=== PATIENT | male | born 1975 | race Caucasian/White ===

== ENCOUNTER 2017-12-08 12:21 | Day surgery (SDC) | payer BC, OTHER ==
[2017-12-03 15:56] VITALS: BMI 32.0
[~2017-12-08] VITALS: Ht 182.9 cm; Wt 106.8 kg
[~2017-12-08 12:21] MED LIST: ATROPINE SULFATE 0.1 MG/ML 5ML SYR IV PRN; CEFAZOLIN 2000MG IV PUSH 10 ML IV SCH; CLX20 PO; EpHEDrine SULFATE INJ 50 MG/ML AMP IV PRN; LACTATED RINGER'S 1000ML 1,000 ML IV SCH; ONDANSETRON INJ 2 MG/ML 2 ML VIAL IV PRN; PROMETHAZINE HCL INJ 12.5 MG in SODIUM CHLORIDE 0.9% 50ML 50 ML IV PRN
[2017-12-08 12:43] VITALS: BP 173/83; PULSE 66; TEMP 36.6; O2SAT 96; Ht 182.9 cm; Wt 106.8 kg
[2017-12-08] MEDS ORDERED: ONDANSETRON INJ 2 MG/ML 2 ML VIAL ONE (14:17)
[2017-12-08] MEDS ORDERED: LIDOCAINE HCL 2% 2 ML VIAL (20MG/ML) ONE (14:17)
[2017-12-08] MEDS ORDERED: DEXAMETHASONE SOD INJ 4 MG/ML VIAL ONE (14:17)
[2017-12-08] MEDS ORDERED: PROPOFOL IV EMULSION 10 MG/ML 20 ML VIAL IV ONE (14:17)
[2017-12-08] MEDS ORDERED: MIDAZOLAM HCL 1 MG/ML 2ML VIAL ONE (14:18)
[2017-12-08] MEDS ORDERED: FENTANYL CITRATE INJ 50 MCG/1 ML 2 ML VIAL ONE ×2 (14:18→15:36)
--- NOTE | 2017-12-08 14:34 | History & Physical Bridge Note ---
H&P Re-Evaluation Bridge Note: I have examined the patient, reviewed the History & Physical and in the interval since the performance of the History & Physical I have noted the following changes of clinical significance: No changes noted
[2017-12-08] MEDS ORDERED: BUPIVACAINE 0.5 % 5 MG/1 ML MPF 30ML VIAL ONE (14:51)
[2017-12-08] MEDS ORDERED: GLYCOPYRROLATE INJ 0.2 MG/ML VIAL ONE (15:21)
[2017-12-08] MEDS ORDERED: ROCURONIUM BROMIDE 10 MG/ML 5 ML VIAL IV ONE (15:21)
[2017-12-08] MEDS ORDERED: NEOSTIGMINE METHYLSULFATE 5 MG/5 ML SYR ONE (15:21)
[2017-12-08] MEDS ORDERED: EpHEDrine SULFATE 50MG/5ML SYR ONE (15:27)
[2017-12-08] MEDS ORDERED: SODIUM CHLORIDE 0.9% 1000ML 1,000 ML IV SCH (16:19)
--- NOTE | 2017-12-08 16:19 | [facility] Post Operative Brief Note ---
Immediate Operative Summary Operative Date Dec 08, 2017. Pre-Operative Diagnosis Right inguinal hernia Post-Operative Diagnosis Right indirect inguinal hernia Procedure(s) Performed Open Repair Right Inguinal Hernia with mesh Surgeon Dr Haskins Roll Trucker Surgeon(s) Berenice Cochran PA-C Estimated Blood Loss 5ml Findings See Below See dictation Specimens none per surgeon Drains None Anesthesia Type General Complication(s) none Disposition Disposition: Recovery Room / PACU
--- NOTE | 2017-12-08 16:21 | Discharge Instructions ---
Discharge Instructions Date of Service Dec 08, 2017. Admission Reason for Admission: Right Inguinal Hernia Discharge Discharge Diagnosis / Problem: Same Discharge Goals Goal(s): Decrease discomfort Activity Recommendations Activity Limitations: per Instructions/Follow-up section Lifting Limitations: no more than 10 pounds (for 6 weeks) Shower/Bathe: tomorrow (shower only) . Instructions / Follow-Up Instructions / Follow-Up ACTIVITY RECOMMENDATIONS: * Walk as much as possible. * No heavy lifting (>10 lbs.) for 2 weeks. SPECIAL CARE INSTRUCTIONS: * Ice to hernia repair site on and off until bedtime tonight. * May shower in 24 hours. Let water run over area and pat dry. * Leave steri strips on for one week. * Call the surgeon's office with any questions or concerns - (ex. temperature higher than 101 degrees F, excessive bleeding or pain). MEDICATIONS: Resume previous medications unless instructed otherwise by your surgeon. * Ibuprofen 600 mg every 6 hours with food * Percocet 1 every 4 hours, as needed for pain FOLLOW UP VISIT: If not already scheduled, please call the office to schedule a two week follow- up appointment. Office number Current Hospital Diet Patient's current hospital diet: Discharge Diet Recommended Diet: Regular Diet Procedures Procedures Performed: Open Repair Right Inguinal Hernia with mesh Pending Studies Studies pending at discharge: no Medical Emergencies . Who to Call and When: Medical Emergencies: If at any time you feel your situation is an emergency, please call 911 immediately. . Non-Emergent Contact Non-Emergency issues call your: Primary Care Provider, Surgeon Call Non-Emergent contact if: your pain is worsening, wound has increased redness, wound has increased pain . "Provider Documentation" section prepared by Wil Haskins. . VTE Core Measure Inpt VTE Proph given/why not?: Treatment not indicated
[2017-12-08] MEDS ORDERED: ONDANSETRON INJ 2 MG/ML 2 ML VIAL IV PRN (16:30)
[2017-12-08] MEDS ORDERED: MoRPHine SULFATE 4 MG/ML 1 ML CARP\\VIAL IV PRN (16:30)
[2017-12-08] MEDS ORDERED: OXYCODONE/ACETAMINOPHEN 5-325 TAB PO PRN (16:30)
[2017-12-08] MEDS: FENTANYL CITRATE INJ 50 MCG/1 ML 2 ML VIAL IV PRN ×4 (17:05→17:40)
[2017-12-08] MEDS: HYDROmorphone INJ 1 MG/ML SYR IV PRN ×6 (17:16→17:53)
[2017-12-08] MEDS ORDERED: KETOROLAC TROMETHAMINE 30 MG/ML VIAL ONE (17:39)
[2017-12-08] MEDS ORDERED: KETOROLAC TROMETHAMINE 30 MG/ML VIAL IV STA (17:40)
--- NOTE | 2017-12-08 17:48 | OPERATIVE REPORT ---
DATE OF OPERATION: 12/08/2017 PREOPERATIVE DIAGNOSIS: Right inguinal hernia. POSTOPERATIVE DIAGNOSIS: Right indirect inguinal hernia. PROCEDURE: Repair of right indirect inguinal hernia. SURGEON: Dr. Haskins. VP PLATFORMS: Berenice Cochran PA-C FINDINGS: The patient had a large indirect inguinal hernia. There was no true direct component but the floor of the canal was attenuated due to the large size of the internal ring. The cord structures were normal. There were no other hernia defects identified. TECHNIQUE: The patient was given a general anesthetic and the area was prepped and draped in the usual sterile fashion. The right inguinal incision was made, carried down through the subcutaneous tissue to the fascia. The external oblique and external ring were identified. A small incision was made in the external oblique and the underlying structures were off its undersurface and it was opened through the external ring. It was dissected through the subcutaneous tissue, there were 2 bridging veins that were doubly clamped, divided and ligated using 3-0 Vicryl ties. The hernia was easily identified. It was within the cremasterics. The cremasteric fibers were opened and the hernia sac was then peeled superiorly. This allowed me then to identify the more distal cord structures and isolate them at the floor of the canal. A Mac drain was placed around them. I then was able to establish a plane beginning more distally at the hernia sac and then working from distal to proximal up to the internal ring, dissecting the hernia sac away from all of the cord structures up to just inside the internal ring. I then away from the scruggs of the canal and the musculature over the internal ring such that it was completely freed and I was able to place it back into its anatomic position. Using the remnant of the cremasterics as well as the transversalis, the floor of the canal was oversewn using a running 0 PDS. Then a new internal ring had been at the tip of my finger. A piece of preformed inguinal hernia mesh was then placed into the floor of the canal and sewn to the anterior surface of the internal oblique medially shelving border over the inguinal ligament laterally and to the tissue over the pubic bone. The legs of the mesh were approximated to each other to create a new internal ring. The cord structures and ilioinguinal nerve which had been included with the cord structures that had been isolated at the beginning of the case were placed back into their anatomic position and the external oblique was closed over them using a running 2-0 Vicryl. The deep subcutaneous tissue was closed with running 2-0 Vicryl, the superficial subcutaneous tissue was closed with running 3-0 Vicryl and the skin of all the incisions was closed with 4-0 Monocryl in either an interrupted or running subcuticular fashion. The skin was anesthetized with 0.5% Marcaine and an ilioinguinal block was performed with that same local. The skin was cleansed, dried, benzoin placed, Steri-Strips applied. Estimated blood loss was 5 mL. Sponge, needle and instrument counts were correct prior to closure. The patient tolerated the surgical procedure without complication and was transferred to recovery. I attest to the content of the Intraoperative Record and any orders documented therein. Any exception s are noted below.
--- NOTE | 2017-12-08 18:27 | Anesthesiology Progress Note ---
Anesthesia Post Op Note Date & Time Dec 08, 2017 at 18:27 Vital Signs Pain Intensity: 3 Vital Signs Past 12 Hours Date Time Temp Pulse Resp B/P (MAP) Pulse Ox O2 Delivery O2 Flow Rate FiO2 12/08/17 18:08 37.0 75 20 145/71 (90) 95 Nasal Cannula 3 12/08/17 17:44 77 23 95 12/08/17 17:44 74 23 12/08/17 17:41 156/90 12/08/17 17:39 82 25 96 12/08/17 17:39 81 25 12/08/17 17:37 143/91 12/08/17 17:34 73 32 12/08/17 17:34 72 32 92 12/08/17 17:31 120/68 12/08/17 17:29 81 24 93 12/08/17 17:29 80 24 12/08/17 17:28 77 24 12/08/17 17:28 77 24 93 12/08/17 17:26 151/96 12/08/17 17:23 79 24 93 12/08/17 17:23 80 24 12/08/17 17:22 78 24 130/86 94 12/08/17 17:22 79 24 12/08/17 17:17 73 24 97 12/08/17 17:17 80 24 12/08/17 17:16 132/67 12/08/17 17:12 79 22 97 12/08/17 17:12 79 22 12/08/17 17:11 80 24 12/08/17 17:11 78 24 143/85 98 12/08/17 17:06 73 19 12/08/17 17:06 72 19 141/95 99 12/08/17 17:02 139/65 12/08/17 17:01 71 17 98 12/08/17 17:01 71 17 12/08/17 17:00 67 19 12/08/17 17:00 66 19 94 12/08/17 16:56 139/79 12/08/17 16:55 63 22 95 12/08/17 16:55 64 22 12/08/17 16:51 137/81 12/08/17 16:50 74 14 96 12/08/17 16:50 69 14 12/08/17 16:46 144/75 12/08/17 16:45 62 22 12/08/17 16:45 67 22 96 12/08/17 16:45 37.7 61 16 144/75 97 Oxymask 10 12/08/17 12:43 36.6 66 18 173/83 (113) 96 Room Air Notes Mental Status: alert / awake / arousable, participated in evaluation Pt Amnestic to Procedure: Yes Nausea / Vomiting: adequately controlled Pain: adequately controlled Airway Patency, RR, SpO2: stable & adequate BP & HR: stable & adequate Hydration State: stable & adequate Anesthetic Complications: no major complications apparent
[2017-12-08 18:34] VITALS: BP 172/81; PULSE 86; TEMP 36.7; O2SAT 94
[2017-12-08 19:04] VITALS: BP 166/80; PULSE 98; TEMP 36.7; O2SAT 95
== END 2017-12-08 19:24 | disposition home or self-care (01) ==
LOC: C.ACU 12:21
PROVIDERS: ATTEND Surgery
DX: K40.90 Unilateral inguinal hernia, without obstruction or gangrene, not specified as recurrent (principal); E66.9 Obesity, unspecified; Z87.891 Personal history of nicotine dependence; Z68.32 Body mass index [BMI] 32.0-32.9, adult

== ENCOUNTER → 2017-12-11 | Day surgery (SDC) | payer OTHER, BC ==
[2017-11-05 16:08] VITALS: Ht 182.9 cm; Wt 106.8 kg
[~2017-12-11] VITALS: Ht 182.9 cm; Wt 106.8 kg
[~2017-12-11] MED LIST changes: +BUPIVACAINE/EPINEPHRINE 0.5% MPF 1:200,000 30 ML VIAL ONE; -CEFAZOLIN 2000MG IV PUSH 10 ML IV SCH; +CEFAZOLIN 3000MG IV PUSH 15 ML IV SCH; +DEXAMETHASONE SOD INJ 4 MG/ML VIAL ONE; +FENTANYL CITRATE INJ 50 MCG/1 ML 2 ML VIAL IV PRN; +FENTANYL CITRATE INJ 50 MCG/1 ML 2 ML VIAL ONE; +HYDR-5688 PO; +KETOROLAC TROMETHAMINE 30 MG/ML VIAL ONE; +LIDOCAINE HCL 2% 2 ML VIAL (20MG/ML) ONE; +MIDAZOLAM HCL 1 MG/ML 2ML VIAL ONE; +MoRPHine SULFATE 2 MG/ML CARP IV PRN; +MoRPHine SULFATE 4 MG/ML 1 ML CARP\\VIAL IV PRN; +ONDANSETRON INJ 2 MG/ML 2 ML VIAL ONE; +OXYCODONE/ACETAMINOPHEN 5-325 TAB PO PRN; -PROMETHAZINE HCL INJ 12.5 MG in SODIUM CHLORIDE 0.9% 50ML 50 ML IV PRN; +PROPOFOL IV EMULSION 10 MG/ML 20 ML VIAL IV ONE; +ROPIVACAINE 0.5% 5 MG/ML 30 ML VIAL ONE; +SODIUM CHLORIDE 0.9% 1000ML 1,000 ML IV SCH
--- NOTE | 2017-12-11 09:05 | [facility] Post Operative Brief Note ---
Immediate Operative Summary Operative Date Dec 11, 2017. Pre-Operative Diagnosis Right shoulder acromioclavicular joint arthritis Post-Operative Diagnosis Same as preop Procedure(s) Performed Right Shoulder Open Distal Clavicle Excision Surgeon Dr. Jackson [place] Guide Surgeon(s) Christie Benton PA-C, wanda cuellar, student Estimated Blood Loss 5 mL Findings Consistent with Post-Op Diagnosis Specimens A: Right distal clavicle Drains None Anesthesia Type General Regional Complication(s) none Disposition Accompanied Pt To Recover: no Disposition: Recovery Room / PACU
--- NOTE | 2017-12-11 09:28 | Discharge Instructions-SurgCtr ---
Discharge Instructions Date of Service Dec 11, 2017. Visit Reason for Visit: Right Shoulder Ac Joint Arthritis Discharge Discharge Diagnosis / Problem: right shoulder acromioclavicular joint arthritis Discharge Goals Goal(s): Decrease discomfort, Improve function, Increase independence Activity Recommendations Activity Limitations: per Instructions/Follow-up section Anesthesia . Post Anesthesia Instructions: If you have had General Anesthesia or IV Sedation: * Do not drive today. * Resume driving when surgeon permits. * Do not make important decisions or sign legal documents today. * Call surgeon for: 1. Temperature elevations greater than 101 degrees F. 2. Uncontrollable pain. 3. Excessive bleeding. 4. Persistent nausea and vomiting. 5. Medication intolerance (nausea, vomiting or rash). * For nausea and vomiting use only clear liquids such as: tea, soda, bouillon until nausea subsides, then gradually increase diet as tolerated. * If you have any concerns or questions, call your surgeon's office. If physician is unavailable and it is an emergency, call 911 or go to the nearest emergency room. . Instructions / Follow-Up Instructions / Follow-Up The following are instructions to follow after "Shoulder Surgery" including, Acromioplasty, Rotator Cuff Repair and Instability Surgery ACTIVITY RECOMMENDATIONS: * Minimize activity after surgery. * No excessive walking, jogging, sports or laboring. * Return to activity is individualized depending on the patient and type of surgery. * Driving is not permitted until at least your first post operative visit. Please ask your doctor when it is safe to resume driving. * Expect increased discomfort with increased activity. Continue to ice the shoulder as needed. SCHOOL/WORK RECOMMENDATIONS: * You may return to sedentary work or school when you are feeling more comfortable. This is usually 3-7 days after surgery. MEDICATIONS: * You will have a prescription for pain medication and an anti-inflammatory medication after surgery. * Use the pain medication for severe pain and the anti-inflammatory for less severe pain. Once the pain medication has run out, try to use the anti-inflammatory medication. If this is not effective, contact the office for assistance. * The pain medication may cause nausea, constipation and drowsiness. You should see how they affect you before driving or similar activity. * The anti-inflammatory medication may cause stomach upset and bleeding. If this occurs let your doctor know immediately . * Take a stool softener like Colace or a laxative like Senokot to prevent constipation. DIET: * Resume previous diet. SPECIAL CARE: ICE: You have the option of an ice cooler, gel packs or ice bags. * If you have an ice cooler, refer to the instructions for that device. The ice cooler may be used continuously. * If you do not have an ice cooler, you will need to use ice bags or gel packs. Do not apply ice directly to the skin. Use a thin dressing or mine shirt between the skin and ice bag. Apply ice for 20-30 minutes and repeat every 2-4 hours. This is especially important for the first 7-10 days after surgery. Once the pain improves, use ice as needed. ELEVATION: * You may be more comfortable sleeping in an upright position. Use the sling to elevate your arm. DRESSING: * Your dressing will be changed at your first therapy appointment approximately 4-5 days after surgery. Band-aids, tape strips or gauze may be applied. You may then change your dressing daily. * Reapply dressing followed by the EBIce cooling pad (if chosen) and then the sling. * Always wash your hands prior to touching the incision area. * Once the stitches are removed, you may leave the wound open to air or cover with gauze. * Expect some bloody drainage for the first few days after surgery. * Leave the tape strips, if present, in place for 5-7 days. * Band-aids and gauze may be changed daily. * There may be a gauze pad in your armpit area. This can be changed daily or replaced by a dry washcloth. SLING/BRACE: * You will need to use a sling or brace after surgery. The length of time the sling is used is dependent upon the type of surgery performed. * Arthroscopic Acromioplasty requires use of the sling for 2-4 weeks for comfort. BATHING: * You may shower or sponge-bathe immediately after surgery. The post operative shoulder dressing is mostly water-tight. You may shower right over this dressing, but be reasonably careful not to get the gauze or incision wet. * Once the dressing has been changed on the fourth or fifth day after surgery, you may shower and get the incision wet. * Wash with regular soap and water. * Do not bathe (submerge the incision), soak, swim or use a hot tub until the incision is completely healed over with normal skin and the doctor has given the OK to proceed. * There is no need to apply any ointments, powders or salves to your incision. * Do not apply alcohol or hydrogen peroxide directly to the incision. * Diluted peroxide (50:50 mixture with sterile saline) may be used to clean dried blood from around the incision area. THERAPY: * You will begin therapy four or five days after surgery. * Organized therapy with the therapist is important for the first 2-4 months after surgery depending on the type of procedure. During that time you will attend therapy 1-3 times per week. * You will also need to do daily exercises for range of motion and strength as instructed. * Patients who have a Capsular Shift Procedure will need to abide by temporary range of motion limitations. * Patients having Rotator Cuff Surgery are not allowed to actively lift their arms until 4-6 weeks after surgery. * Please check with your doctor regarding appropriate motion restrictions. FOLLOW UP VISIT: * If not already scheduled, please call the office at to schedule a follow-up appointment for 10 days after surgery and monthly thereafter. * Please call [phone] to confirm postoperative physical therapy appointment and postoperative appointment for suture removal with Dr. Jackson. Diet Recommendations Home Diet: no limitations, resume previous diet Procedures Procedures Performed: Right Shoulder Open Distal Clavicle Excision Pending Studies Studies pending at discharge: no Medical Emergencies . Who to Call and When: Medical Emergencies: If at any time you feel your situation is an emergency, please call 911 immediately. . Non-Emergent Contact Non-Emergency issues call your: Surgeon Call Non-Emergent contact if: temperature is above 101, your pain is not controlled, your pain is worsening, your pain is unusual for you, wound has increased drainage, wound has increased redness, wound has increased pain, you have any medication questions . . "Provider Documentation" section prepared by Christie Benton. .
--- NOTE | 2017-12-11 09:31 | [facility] Operative Report ---
Operative Report Operative Date Dec 11, 2017. Pre-Operative Diagnosis Right shoulder acromioclavicular joint arthritis Post-Operative Diagnosis Same as preop Procedure(s) Performed Right Shoulder Open Distal Clavicle Excision Surgeon Dr. Jackson Bartacker Surgeon(s) Christie Benton PA-C, wanda campo, student Estimated Blood Loss 5 mL Findings Acromioclavicular joint arthritis right shoulder Specimens A: Right distal clavicle Drains none Anesthesia Gen. with peripheral nerve block Complication(s) None Disposition Recovery Room / PACU (stable) Indications Patient is a 42-year-old male with complaints of right shoulder pain. His progressively worsened over the last few months. He is failed conservative treatment. X-rays show before meals joint arthritis with cystic changes. Surgical intervention was recommended. Risks and complications were discussed. Informed consent was obtained. Description of Procedure Patient was taken to the operating room and placed under general anesthesia. He was given a peripheral nerve block prior to the case. He was given 3 g of IV Ancef for surgical prophylaxis. Timeout was performed. He was prepped and draped in routine sterile fashion. I was present during the entire case, please see Dr. Jackson's operative report for further detail. Patient was awakened and transferred to recovery room in stable condition. I attest to the content of the Intraoperative Record and any orders documented therein. Any exceptions are noted below.
[2017-12-11 10:19] VITALS: TEMP 36.9
[2017-12-11 10:45] VITALS: BP 152/87; PULSE 66; O2SAT 95
--- NOTE | 2017-12-11 10:55 | Anesthesia Progress Nt - [facility] ---
Anesthesia Post Op Note Date & Time Dec 11, 2017 at 10:54 Vital Signs Pain Intensity: 0 Vital Signs Past 12 Hours Date Time Temp Pulse Resp B/P (MAP) Pulse Ox O2 Delivery O2 Flow Rate FiO2 12/11/17 10:45 66 18 152/87 (108) 95 Room Air 12/11/17 10:19 36.9 78 18 164/101 (122) 93 Room Air 12/11/17 10:11 70 18 147/96 93 12/11/17 10:11 72 18 12/11/17 10:11 72 18 12/11/17 10:11 70 18 147/96 93 12/11/17 10:06 75 19 12/11/17 10:06 77 19 135/87 94 12/11/17 10:06 75 19 12/11/17 10:06 77 19 135/87 94 12/11/17 10:05 36.9 69 16 147/96 94 Room Air 12/11/17 10:01 70 15 12/11/17 10:01 70 15 12/11/17 10:01 70 15 155/108 93 12/11/17 10:01 70 15 155/108 93 12/11/17 09:56 72 17 159/93 92 12/11/17 09:56 72 17 159/93 92 12/11/17 09:56 75 17 12/11/17 09:56 75 17 12/11/17 09:51 64 15 12/11/17 09:51 67 15 141/79 97 12/11/17 09:51 64 15 12/11/17 09:51 67 15 141/79 97 12/11/17 09:46 64 15 12/11/17 09:46 64 15 12/11/17 09:46 64 15 134/78 98 12/11/17 09:46 64 15 134/78 98 12/11/17 09:41 66 16 150/81 98 12/11/17 09:41 66 16 150/81 98 12/11/17 09:41 64 16 12/11/17 09:41 64 16 12/11/17 09:36 67 13 12/11/17 09:36 70 13 143/80 98 12/11/17 09:36 70 13 143/80 98 12/11/17 09:36 67 13 12/11/17 09:31 65 15 136/77 96 12/11/17 09:31 65 15 136/77 96 12/11/17 09:31 62 15 12/11/17 09:31 62 15 12/11/17 09:26 59 15 12/11/17 09:26 61 15 158/86 98 12/11/17 09:26 61 15 158/86 98 12/11/17 09:26 59 15 12/11/17 09:23 162/88 12/11/17 09:23 162/88 12/11/17 09:22 37.0 61 16 162/88 98 Mask 6 12/11/17 08:05 66 21 149/85 100 12/11/17 08:00 62 17 142/93 100 12/11/17 07:55 64 22 162/89 98 12/11/17 07:51 63 18 148/89 97 12/11/17 06:35 37.0 68 18 166/92 (116) 95 Room Air Notes Mental Status: alert / awake / arousable, participated in evaluation Pt Amnestic to Procedure: Yes Nausea / Vomiting: adequately controlled Pain: adequately controlled Airway Patency, RR, SpO2: stable & adequate BP & HR: stable & adequate Hydration State: stable & adequate Anesthetic Complications: no major complications apparent
--- NOTE | 2017-12-15 12:31 | OPERATIVE REPORT ---
DATE OF OPERATION: 12/11/2017 PREOPERATIVE DIAGNOSIS: Right shoulder acromioclavicular joint arthritis. POSTOPERATIVE DIAGNOSIS: Same. PROCEDURE: Right shoulder open distal clavicle excision. SURGEON: Miguel Jackson MD ORNAMENTAL PLASTER STICKER: Christie Benton PA-C SECOND ORNAMENTAL PLASTER STICKER: Christa Sparrow, [facility] assistant director student. ANESTHESIA: General with interscalene block. INDICATIONS FOR PROCEDURE: The patient is a 42-year-old male with signs and symptoms of right shoulder AC arthritis, completely relieved with a corticosteroid injection. He does have some labral pathology on MRI, which was felt to be asymptomatic at this time as the cortisone shots in the AC joint have twice completely but temporarily relieved his shoulder pain. His examination is consistent with isolated distal clavicle arthritis which is evident on MRI and x-ray. PROCEDURE IN DETAIL: Informed consent was obtained. The patient was identified as Otis Gunn. He identified the operative site as the right shoulder. I marked with my initials. A preop surgical time-out was performed and a preop dose of IV antibiotics was given. He was taken to the operating room, positioned supine on the OR table. The examination under anesthesia revealed full range of motion, negative sulcus sign and grade 2 anterior and posterior translation equal to the opposite side. He was positioned beachchair with neck held in neutral alignment. The torso was secured to the table. Heels padded, knees flexed, neck held in neutral alignment. The right upper extremity was prepped and draped in usual sterile fashion. DVT prophylaxis intraoperatively with foot pumps, postoperatively early mobility, full range of motion. The right upper extremity was prepped and draped in usual sterile fashion. I made approximately 3-4 cm incision just medial to the palpable AC joint. Electrocautery was utilized down to subcutaneous tissues to the level of the fascia which was then divided in line with the shaft of the clavicle. The distal portion of the clavicle was exposed and the orientation and position of the AC joint was identified. The distal 10 mm was then resected with an oscillating saw, resulting in a smooth surface. I could fit my finger in the space without any evidence of impingement. The wound was then irrigated copiously with sterile saline. The distal clavicle visually looked normal. The deltotrapezial fascia was then closed with 0 Vicryl in an interrupted fashion. Skin was then closed in layers with 2-0 Vicryl and a 4-0 Monocryl subcuticular stitch. A soft sterile dressing was applied along with a simple arm sling. The patient was awakened from anesthesia without difficulty and taken to the recovery room in stable condition. There were no complications. The resected bone was sent for specimen. Counts were correct at the end of the case. Blood loss was minimal. At the conclusion of the operation, I spoke to patient's family and informed them of my findings. Detailed postoperative instructions were given. He will be able to do early active movement of his shoulder. I attest to the content of the Intraoperative Record and any orders documented therein. Any exception s are noted below.
== END | disposition home or self-care (01) ==
LOC: X.SURG 06:21
PROVIDERS: ATTEND Physical Medicine & Rehabilitation Sports Medicine
DX: M19.011 Primary osteoarthritis, right shoulder (principal); E66.9 Obesity, unspecified; Z68.32 Body mass index [BMI] 32.0-32.9, adult

== ENCOUNTER 2018-02-10 09:24 | Emergency (ER) | payer OTHER, BC ==
[~2018-02-10] VITALS: Ht 182.9 cm; Wt 115.4 kg
[~2018-02-10 09:24] MED LIST changes: -ATROPINE SULFATE 0.1 MG/ML 5ML SYR IV PRN; -BUPIVACAINE/EPINEPHRINE 0.5% MPF 1:200,000 30 ML VIAL ONE; -CEFAZOLIN 3000MG IV PUSH 15 ML IV SCH; -DEXAMETHASONE SOD INJ 4 MG/ML VIAL ONE; -EpHEDrine SULFATE INJ 50 MG/ML AMP IV PRN; -FENTANYL CITRATE INJ 50 MCG/1 ML 2 ML VIAL IV PRN; -FENTANYL CITRATE INJ 50 MCG/1 ML 2 ML VIAL ONE; -KETOROLAC TROMETHAMINE 30 MG/ML VIAL ONE; -LACTATED RINGER'S 1000ML 1,000 ML IV SCH; -LIDOCAINE HCL 2% 2 ML VIAL (20MG/ML) ONE; -MIDAZOLAM HCL 1 MG/ML 2ML VIAL ONE; -MoRPHine SULFATE 2 MG/ML CARP IV PRN; -MoRPHine SULFATE 4 MG/ML 1 ML CARP\\VIAL IV PRN; -ONDANSETRON INJ 2 MG/ML 2 ML VIAL IV PRN; -ONDANSETRON INJ 2 MG/ML 2 ML VIAL ONE; -OXYCODONE/ACETAMINOPHEN 5-325 TAB PO PRN; -PROPOFOL IV EMULSION 10 MG/ML 20 ML VIAL IV ONE; -ROPIVACAINE 0.5% 5 MG/ML 30 ML VIAL ONE; -SODIUM CHLORIDE 0.9% 1000ML 1,000 ML IV SCH
[2018-02-10 09:39] VITALS: Ht 182.9 cm; Wt 115.4 kg
[2018-02-10] MEDS ORDERED: KETOROLAC TROMETHAMINE 60 MG/2 ML VIAL IM STA (10:00)
--- NOTE | 2018-02-10 10:29 | DIAGNOSTIC IMAGING REPORT ---
LUMBAR SPINE RADIOGRAPHS CLINICAL HISTORY: Lower back pain. COMPARISON: None FLUOROSCOPY TIME: FINDINGS: Note is made of a 1.1 cm of anterolisthesis of L5 on S1. There is moderate disc space narrowing at this level. Moderate lower lumbar spine facet arthrosis is present. There is no acute fracture. Vertebral body heights are maintained. Bowel gas pattern is normal. IMPRESSION: 1. No acute lumbar spine fracture or subluxation. 2. Grade I anterolisthesis of L5 on S1 which could be due to pars defects or facet arthrosis. 3. Moderate disc space narrowing and osteophytosis at L5-S1 with facet arthrosis at this level. Electronically signed by: Cesar Freedman M.D. 02/10/2018 10:27 AM Dictated Date/Time: 02/10/2018 10:25 AM
[2018-02-10] MEDS ORDERED: PRED50TA PO (11:36)
[2018-02-10 11:48] VITALS: BP 188/73; PULSE 80; TEMP 36.7; O2SAT 97
--- NOTE | 2018-02-10 15:18 | EMERGENCY ROOM VISIT NOTE ---
History Report prepared by Doe: Radha Zambrano Under the Supervision of: Dr. Jared Scruggs D.O. First contact with patient: 09:52 Chief Complaint: LEG PAIN,LEG INJURY Stated Complaint: LEFT LEG PAIN - BURNING History of Present Illness The patient is a 42 year old male who presents to the Emergency Room with complaints of constant left buttock pain beginning yesterday. The patient states his pain radiates down his left leg. He describes his leg pain as burning. He also reports lower back pain. The patient went to his chiropractor yesterday who adjusted his back and got X-rays on the patient's back. The patient reports sitting and standing make his pain worse. He rates his pain as a 6/10. Pt denies headache, numbness, weakness change in vision, fevers, chest pain, shortness of breath, nausea, vomiting, diarrhea, pain with urination, and melena. The patient denies any history of cancer or diabetes. Source of History: patient Onset: yesterday Position: leg (left) Symptom Intensity: 6/10 Quality: burning Timing: constant Modifying Factors (Worsening): movement Associated Symptoms: + back pain, No fevers, No chest pain, No SOB, No nausea, No vomiting, No urinary symptoms, No weakness, No numbness Review of Systems See HPI for pertinent positives & negatives. A total of 10 systems reviewed and were otherwise negative. Family History Patient reports no known family medical history. Social History Smoking Status: Never Smoker Marital Status: Housing Status: lives with family Occupation Status: employed Current/Historical Medications Scheduled Citalopram (Citalopram Hydrobromide), 20 MG PO HS Prednisone (Prednisone), 50 MG PO DAILY Allergies Coded Allergies: No Known Allergies (Unverified , 02/10/18) Physical Exam Vital Signs Date Time Temp Pulse Resp B/P (MAP) Pulse Ox O2 Delivery O2 Flow Rate FiO2 02/10/18 11:48 36.7 80 18 188/73 97 02/10/18 09:39 36.7 81 18 188/73 97 Room Air Physical Exam GENERAL: Sitting up in chair, alert, well appearing, well nourished, no distress , non-toxic EYE EXAM: normal conjunctiva. OROPHARYNX: no exudate, no erythema, lips, buccal mucosa, and tongue normal and mucous membranes are moist NECK: supple, no nuchal rigidity, no adenopathy, non-tender LUNGS: Clear to auscultation. Normal chest wall mechanics HEART: no murmurs, S1 normal and S2 normal ABDOMEN: abdomen soft, non-tender, normo-active bowel sounds, no masses, no rebound or guarding. BACK: Back is symmetrical on inspection and there is no deformity, no midline tenderness, no CVA tenderness. SKIN: no rashes and no bruising UPPER EXTREMITIES: upper extremities are grossly normal. LOWER EXTREMITIES: No pitting edema. Flexion and extension of hip, knee, ankle and EHL 5/5 bilaterally, gross sensation intact, Patellar and Achilles reflexes 2/4, able to walk on heels and toes NEURO EXAM: Normal sensorium, cranial nerves II-XII grossly intact, normal speech, no gross weakness of arms, no gross weakness of legs. Medical Decision & Procedures ER Provider Diagnostic Interpretation: Radiology results as stated below per my review and the radiologist's interpretation: LUMBAR SPINE RADIOGRAPHS FINDINGS: Note is made of a 1.1 cm of anterolisthesis of L5 on S1. There is moderate disc space narrowing at this level. Moderate lower lumbar spine facet arthrosis is present. There is no acute fracture. Vertebral body heights are maintained. Bowel gas pattern is normal. IMPRESSION: 1. No acute lumbar spine fracture or subluxation. 2. Grade I anterolisthesis of L5 on S1 which could be due to pars defects or facet arthrosis. 3. Moderate disc space narrowing and osteophytosis at L5-S1 with facet arthrosis at this level. Electronically signed by: Cesar Freedman M.D. Medications Administered Medications (Trade) Dose Ordered Sig/Hanna Route Start Time Stop Time Status Last Admin Dose Admin Ketorolac Tromethamine (Toradol Inj) 60 mg NOW STAT IM 02/10/18 10:00 02/10/18 10:02 DC 02/10/18 10:12 60 MG Prednisone (PredniSONE TAB) 50 mg ONE PO 02/10/18 10:00 02/10/18 12:10 DC 02/10/18 10:21 50 MG ED Course ED COURSE: Vital signs were reviewed and showed hypertensive The patients medical record was reviewed The above diagnostic studies were performed and reviewed. ED treatments and interventions as stated above. 0954: The patient was evaluated in room C3. A complete history and physical examination was performed. 1000: Ordered Prednisone 50 mg PO, Toradol Inj 60 mg IM. 1113: I updated the patient on his test results. 1144: Upon reevaluation, the patient is resting comfortably.I discussed my findings with the patient and he understands and agrees with the treatment plan. Based on the patients age, coexisting illnesses, exam and lab findings the decision to treat as an outpatient was made. The patient remained stable while under my care. The patient appeared well at the time of discharge. Medical Decision Differential diagnoses includes but is not limited to lumbar radiculopathy, muscle strain, facture, cauda equina, mass, and disc herniation. Patient is a 42-year-old male that presents to ER for lower back/gluteal pain radiating down his left leg. He is completely neurologically intact. X-ray show no obvious fractures. No red flags. Vitals are stable. Patient was given Toradol and steroids. He felt significantly better. He was discharged follow-up following negative x-rays as an outpatient with sciatica. There is no signs of cauda equina. Discussed with Pt concerning signs and symptoms to watch out for. Pt was instructed to follow up with their PCP and discussed with the patient their option to return to the ED at anytime for persistent or worsening symptoms. The appropriate anticipatory guidance and out-patient management, including indications for return to the emergency department, were explained at length to the patient and understood. Medication Reconcilliation Current Medication List: was personally reviewed by me Blood Pressure Screening Patient's blood pressure: Elevated blood pressure Blood pressure disposition: Elevated BP felt to be situational Impression Primary Impression: Sciatica Scribe Attestation The scribe's documentation has been prepared under my direction and personally reviewed by me in its entirety. I confirm that the note above accurately reflects all work, treatment, procedures, and medical decision making performed by me. Departure Information Dispostion Home / Self-Care Prescriptions Prednisone (PREDNISONE) 50 Mg Tab 50 MG PO DAILY for 5 Days, #5 TAB Prov: Jared Scruggs, 02/10/18 Referrals Wil Diallo M.D. (PCP) Forms HOME CARE DOCUMENTATION FORM, IMPORTANT VISIT INFORMATION Patient Instructions ED Sciatica, My [facility] Additional Instructions Please follow up with your primary care doctor with in the next 24 hours. Any worsening of your symptoms, please return to the ED immediately. This includes any fevers greater than 100.4, weakness or numbness in your arms or legs, numbness in your groin, worsening pain, chest pain, shortness breath, persistent nausea, vomiting, unable to eat or drink, or any other concerning signs or symptoms from your standpoint. Please take Tylenol or Motrin for the pain in combination with the steroids. This will help to alleviate her back pain. Please try to refrain from any heavy lifting. Problem Qualifiers Primary Impression: Sciatica Laterality: left Qualified Codes: M54.32 - Sciatica, left side
== END 2018-02-10 11:49 | disposition home or self-care (01) ==
LOC: C.EDB 09:25 → C.EDC 11:49
DX: M54.32 Sciatica, left side (principal)